=== PATIENT | female | born 1955 | race Caucasian/White ===

== ENCOUNTER 2021-02-14 17:06 | Inpatient (IN) | payer MEDICARE, OTHER ==
[~2021-02-14] VITALS: Ht 162.6 cm; Wt 99.0 kg
[~2021-02-14 17:06] MED LIST: ASPIRIN EC325 MG PO; CELEBREX 200MG200 MG PO; CYCLOBENZAPRINE5 MG PO; GABAPENTIN800 MG PO; KLONOPIN TAB 00.5 MG PO; KLONOPIN1 MG PO; NORCO PO; OMEPRAZOLE40 MG PO; PROZAC20 MG PO
[2021-02-14] MEDS ORDERED: LEVOTHYROXINE25 MC1 PO (21:46)
[2021-02-14] MEDS ORDERED: CHRONULAC20 GM/30 M PO (21:48)
[2021-02-14] MEDS ORDERED: TIZANIDINE HCL4 MG PO (21:49)
[2021-02-14] MEDS ORDERED: METHOCARBAMOL500 MG PO (21:49)
[2021-02-14] MEDS ORDERED: DESYREL 50 MG T50 MG PO (21:51)
[2021-02-14] MEDS ORDERED: PIOGLITAZONE HC15 MG PO (21:51)
[2021-02-14] MEDS ORDERED: MIRTAZAPINE45 MG PO (21:51)
[2021-02-14] MEDS ORDERED: PROZAC 20 MG CA20 MG GT (21:52)
[2021-02-14] MEDS ORDERED: VITAMIN C 500500 MG PO (21:52)
[2021-02-14] MEDS ORDERED: VITAMIN D21250 MCG PO (21:53)
[2021-02-14] MEDS ORDERED: HYDROCODON-ACE1 EAC6 PO (21:54)
[2021-02-14] MEDS ORDERED: VENTOLIN HFA 66.7 GM INH (21:58)
[2021-02-15 10:54] LABS: HEMOGLOBIN 12.2 gm/dl (12.3-15.3); RED BLOOD COUNT 3.68 M/UL (4.00-5.10); WHITE BLOOD COUNT 13.2 K/UL (4.5-11.0)
[2021-02-15 11:24] LABS: BUN/CREATININE RATIO 16 (0-10)
[2021-02-16 02:47] LABS: BUN/CREATININE RATIO 10 (0-10)
[2021-02-17 04:04] LABS: HEMOGLOBIN 11.4 gm/dl (12.3-15.3); RED BLOOD COUNT 3.43 M/UL (4.00-5.10)
[2021-02-17 04:28] LABS: BUN/CREATININE RATIO 11 (0-10)
[2021-02-17 04:35] LABS: WHITE BLOOD COUNT 7.1 K/UL (4.5-11.0)
[2021-02-17] MEDS ORDERED: KLONOPIN1 MG PO (11:58)
[2021-02-17] MEDS ORDERED: XIFAXAN 550 MG550 MG PO (11:58)
[2021-02-17] MEDS ORDERED: NITROFURANTOIN100 MG PO (11:58)
[2021-02-19] MEDS ORDERED: NITROFURANTOIN100 MG PO (11:19)
[2021-02-19] MEDS ORDERED: XIFAXAN 550 MG550 MG PO (11:19)
== END 2021-02-17 13:42 | disposition home health service (06) | DRG 441 ==
LOC: PROG CARE 21:20 → MED SURG 4 02-16 14:55
PROVIDERS: ADMIT Internal Medicine
DX: K72.00 Acute and subacute hepatic failure without coma (principal); G93.41 Metabolic encephalopathy; G92 Toxic encephalopathy; N39.0 Urinary tract infection, site not specified; J96.11 Chronic respiratory failure with hypoxia; E87.2 Acidosis; F11.20 Opioid dependence, uncomplicated; T42.4X5A Adverse effect of benzodiazepines, initial encounter; T48.205A Adverse effect of unspecified drugs acting on muscles, initial encounter; E66.9 Obesity, unspecified; Z66 Do not resuscitate; T40.2X5A Adverse effect of other opioids, initial encounter; G43.909 Migraine, unspecified, not intractable, without status migrainosus; K75.81 Nonalcoholic steatohepatitis (NASH); B95.2 Enterococcus as the cause of diseases classified elsewhere; R74.01 Elevation of levels of liver transaminase levels; K74.60 Unspecified cirrhosis of liver; J44.9 Chronic obstructive pulmonary disease, unspecified; D72.829 Elevated white blood cell count, unspecified; E11.9 Type 2 diabetes mellitus without complications; E03.9 Hypothyroidism, unspecified; R00.0 Tachycardia, unspecified; G89.29 Other chronic pain; F41.9 Anxiety disorder, unspecified; Z86.73 Personal history of transient ischemic attack (TIA), and cerebral infarction without residual deficits; Z91.14 Patient's other noncompliance with medication regimen; Z79.899 Other long term (current) drug therapy; Z99.81 Dependence on supplemental oxygen; Z83.3 Family history of diabetes mellitus; Z68.37 Body mass index [BMI] 37.0-37.9, adult
CPT/HCPCS: 36415; 80053; 80307; 81001; 82550; 82553; 82607; 82746; 82962; 83036; 83605; 83874; 84439; 84443; 84484; 85027; 87077; 87086; 87186; 94640; 94664; 94760; 96374; 96375; 96376; 97116-GP-CQ; 97161; 97166; G0378; G0379; J0696; J1650

== ENCOUNTER 2021-03-02 16:44 | Observation (INO) | payer MEDICARE, OTHER ==
[~2021-03-02] VITALS: Ht 162.6 cm; Wt 102.7 kg
[~2021-03-02 16:44] MED LIST changes: +CHRONULAC20 GM/30 M PO; +DESYREL 50 MG T50 MG PO; +HYDROCODON-ACE1 EAC6 PO; +LEVOTHYROXINE25 MC1 PO; +METHOCARBAMOL500 MG PO; +MIRTAZAPINE45 MG PO; +NITROFURANTOIN100 MG PO; +PIOGLITAZONE HC15 MG PO; +PROZAC 20 MG CA20 MG GT; +TIZANIDINE HCL4 MG PO; +VENTOLIN HFA 66.7 GM INH; +VITAMIN C 500500 MG PO; +VITAMIN D21250 MCG PO; +XIFAXAN 550 MG550 MG PO
[2021-03-02 17:40] LABS: HEMOGLOBIN 11.5 gm/dl (12.3-15.3); RED BLOOD COUNT 3.47 M/UL (4.00-5.10); WHITE BLOOD COUNT 4.6 K/UL (4.5-11.0)
[2021-03-02 18:04] LABS: BUN/CREATININE RATIO 17 (0-10)
[2021-03-02] MEDS ORDERED: GAS RELIEF 8080 MG PO (20:03)
[2021-03-02] MEDS ORDERED: POTASSIUM CHLO20 ME2 PO (20:04)
[2021-03-02] MEDS ORDERED: SUMATRIPTAN SU100 MG PO (20:09)
[2021-03-02] MEDS ORDERED: TOPAMAX 25 MG T25 MG PO (20:10)
[2021-03-03 03:17] LABS: RED BLOOD COUNT 3.32 M/UL (4.00-5.10); WHITE BLOOD COUNT 3.6 K/UL (4.5-11.0)
[2021-03-03 03:46] LABS: BUN/CREATININE RATIO 17 (0-10)
[2021-03-04 02:16] LABS: HEMOGLOBIN 11.9 gm/dl (12.3-15.3); RED BLOOD COUNT 3.61 M/UL (4.00-5.10)
[2021-03-04 02:37] LABS: BUN/CREATININE RATIO 15 (0-10)
[2021-03-04] MEDS ORDERED: LOPRESSOR 25 MG25 MG PO (11:35)
== END 2021-03-04 13:59 | disposition home health service (06) ==
LOC: ER1 16:44 → CDU 18:46 → M/S 20:19
PROVIDERS: Preventive Medicine Occupational Medicine; ADMIT Internal Medicine Infectious Disease
DX: G93.40 Encephalopathy, unspecified (principal); R00.0 Tachycardia, unspecified; I49.1 Atrial premature depolarization; G89.4 Chronic pain syndrome; F11.20 Opioid dependence, uncomplicated; K74.60 Unspecified cirrhosis of liver; D61.818 Other pancytopenia; F41.9 Anxiety disorder, unspecified; F32.9 Major depressive disorder, single episode, unspecified; J44.9 Chronic obstructive pulmonary disease, unspecified; E11.9 Type 2 diabetes mellitus without complications; I50.9 Heart failure, unspecified; E03.9 Hypothyroidism, unspecified; Z88.8 Allergy status to other drugs, medicaments and biological substances; Z79.84 Long term (current) use of oral hypoglycemic drugs; Z79.899 Other long term (current) drug therapy; Z20.822 Contact with and (suspected) exposure to COVID-19
CPT/HCPCS: 36415; 36600; 71045; 80048; 80053; 80307; 81001; 82140; 82550; 82553; 82803; 83690; 83735; 83874; 83880; 84443; 84484; 85025; 85652; 86140; 87086; 93005; 99285; G0378; G0480; U0002